=== PATIENT | female | born 1950 | race Caucasian/White ===

== ENCOUNTER 2023-06-27 05:15 | Inpatient (IN) | payer MEDICARE, OTHER ==
[~2023-06-27] VITALS: Ht 160 cm; Wt 43.2 kg
[2023-06-27] MEDS ORDERED: LOSA25TA41 PO (05:31)
[2023-06-27] MEDS ORDERED: AMI200T PO (05:31)
[2023-06-27] MEDS ORDERED: CLOP75TA34 PO (05:31)
[2023-06-27 06:10] LABS: BASOPHILS # (AUTO) 0.1 X10'3 (0-0.2); BASOPHILS % (AUTO) 0.8 % (0-1); EOSINOPHILS # (AUTO) 0.1 X10'3 (0-0.9); EOSINOPHILS % (AUTO) 1.8 % (0-6); HEMATOCRIT 40.5 % (35.0-45.0); HEMOGLOBIN 13.7 g/dl (12.0-16.0); LYMPHOCYTES # (AUTO) 1.4 X10'3 (1.1-4.8); LYMPHOCYTES % (AUTO) 21.7 % (21-51); MEAN CORPUSCULAR HEMOGLOBIN 31.5 PG (27.0-31.0); MEAN CORPUSCULAR HGB CONC 33.9 g/dL (33.0-36.5); MEAN CORPUSCULAR VOLUME 92.8 FL (78-98); MONOCYTES # (AUTO) 0.7 X10'3 (0-0.9); MONOCYTES % (AUTO) 9.8 % (2-12); NEUTROPHILS # (AUTO) 4.4 X10'3 (1.8-7.7); NEUTROPHILS % (AUTO) 65.9 % (42-75); PLATELET COUNT 208 X10'3 (140-440); RED BLOOD COUNT 4.37 X10'6 (4.20-5.60); RED CELL DISTRIBUTION WIDTH 13.3 % (11.5-14.5); WHITE BLOOD COUNT 6.6 X10'3 (4.5-11.0)
[2023-06-27 06:20] LABS: ALBUMIN 3.5 G/DL (3.4-5.0); ANION GAP 11 (8-16); BLOOD UREA NITROGEN 13 MG/DL (7-18); BUN/CREATININE RATIO 13.4 (10.0-20.0); CALCIUM 9.1 MG/DL (8.5-10.1); CHLORIDE 101 MMOL/L (99-107); CREATININE 0.97 MG/DL (0.40-0.90); GLUCOSE 95 MG/DL (70-104); POTASSIUM 4.1 MMOL/L (3.5-5.1); SODIUM 136 MMOL/L (135-145); TOTAL CARBON DIOXIDE 24.2 MMOL/L (24-32); eCRCL 45 ML/MIN; eGFR 56 ML/MIN
[2023-06-27] MEDS ORDERED: diphenhydrAMINE 50 mg/ml inj IV PRN (07:55)
[2023-06-27] MEDS ORDERED: ondansetron/PF 4mg/2ml inj IV PRN (07:55)
[2023-06-27] MEDS ORDERED: magnesium hydroxide 30ml (MOM) UD suspension PO PRN (07:55)
[2023-06-27] MEDS ORDERED: morphine 2 MG/ML inj. syringe IV PRN ×2 (07:55)
[2023-06-27] MEDS ORDERED: acetaminophen 650mg rectal suppository RC PRN (07:55)
[2023-06-27] MEDS ORDERED: mag hydrox/Alum hydrox/simeth 30ml oral suspension PO PRN (07:55)
[2023-06-27] MEDS ORDERED: acetaminophen 325mg tablet PO PRN ×2 (07:55)
[2023-06-27] MEDS ORDERED: ondansetron 4mg rapidly disintigrating tab PO PRN (07:55)
[2023-06-27] MEDS ORDERED: HYDROcodone/acetaminophen 10/325mg tab PO PRN (07:55)
[2023-06-27] MEDS ORDERED: HYDROcodone/acetaminophen 5mg/325mg tablet PO PRN (07:55)
[2023-06-27] MEDS ORDERED: bisacodyl 10mg suppository rectal RC PRN (07:55)
[2023-06-27 08:00] LABS: APTT 35 SECONDS (22-32); INR 1.1 INR; PROTHROMBIN TIME 11.5 SECONDS (9.0-12.0)
[2023-06-27] MEDS: docusate sod 100mg capsule PO SCH (08:14)
[2023-06-27] MEDS: normal saline 1000ml 1,000 ML IV SCH (08:17)
[2023-06-27] MEDS ORDERED: heparin 10,000 units/1 ML INJ IV PRN (08:30)
[2023-06-27] MEDS: magnesium 2GM in 50ml NS 50 ML IV ONE (08:57)
[2023-06-27 09:06] LABS: MAGNESIUM 2.1 MG/DL (1.5-2.4); PRO BRAIN NATRIURETIC PEPTIDE 2010 PG/ML (0-450)
[2023-06-27 09:12] LABS: HEMOGLOBIN A1C 5.9 % (4.5-6.2)
[2023-06-27 09:24] LABS: PHOSPHORUS 4.1 MG/DL (2.3-4.5)
[2023-06-27 09:37] VITALS: BP 105/70; PULSE 59; RESP 16; O2SAT 97
[2023-06-27] MEDS ORDERED: ASPI-1397 PO (09:41)
[2023-06-27] MEDS: ringers solution, lacted 1,000 ML IV ONE (10:58)
[2023-06-27] MEDS: MESSAGE TO NURSING IV ONE ×2 (11:15→21:57)
[2023-06-27 11:32] LABS: BASOPHILS # (AUTO) 0.1 X10'3 (0-0.2); BASOPHILS % (AUTO) 0.8 % (0-1); EOSINOPHILS % (AUTO) 0.7 % (0-6); HEMATOCRIT 41.8 % (35.0-45.0); HEMOGLOBIN 13.9 g/dl (12.0-16.0); LYMPHOCYTES # (AUTO) 1.2 X10'3 (1.1-4.8); LYMPHOCYTES % (AUTO) 18.1 % (21-51); MEAN CORPUSCULAR HGB CONC 33.3 g/dL (33.0-36.5); MEAN CORPUSCULAR VOLUME 93.1 FL (78-98); MEAN PLATELET VOLUME 8.6 FL (7.4-10.4); MONOCYTES # (AUTO) 0.5 X10'3 (0-0.9); MONOCYTES % (AUTO) 7.1 % (2-12); NEUTROPHILS # (AUTO) 4.9 X10'3 (1.8-7.7); NEUTROPHILS % (AUTO) 73.3 % (42-75); PLATELET COUNT 207 X10'3 (140-440); RED BLOOD COUNT 4.49 X10'6 (4.20-5.60); RED CELL DISTRIBUTION WIDTH 13.5 % (11.5-14.5); WHITE BLOOD COUNT 6.6 X10'3 (4.5-11.0)
[2023-06-27 11:36] VITALS: BP 110/62; PULSE 92; RESP 19; TEMP 98.1; O2SAT 96
[2023-06-27 11:54] LABS: CHOL/HDL RATIO 2.3 (0.00-4.99); CHOLESTEROL 167 MG/DL (0-200); HDL CHOLESTEROL 72 MG/DL (35-60); LDL CHOLESTEROL 81 MG/DL (50-100); LIPASE 78 U/L (16-77); THYROID STIMULATING HORMONE 3.71 ulU/ml (0.34-4.50); TRIGLYCERIDES 64 MG/DL (20-135)
[2023-06-27 14:00] VITALS: BP 105/47; PULSE 63; RESP 16; TEMP 98; O2SAT 93
[2023-06-27] MEDS ORDERED: heparin 25,000 UNIT/250ml bag 250 ML IV PRN (14:00)
[2023-06-27] MEDS: clopidogrel 75mg tablet PO SCH (14:14)
[2023-06-27] MEDS: heparin 25,000 UNIT/250ml bag 250 ML IV PRN (14:23)
[2023-06-27] MEDS ORDERED: aminophylline 250mg/10ml inj. IV PRN (17:35)
[2023-06-27] MEDS ORDERED: nitroGLYCERIN 0.4mg SUBLingual tab SL PRN (17:35)
[2023-06-27] MEDS ORDERED: metoprolol tartrate 1mg/ml inj IV PRN (17:35)
[2023-06-27 18:00] VITALS: BP 130/63; PULSE 71; RESP 13; TEMP 97.7; O2SAT 95
[2023-06-27 20:00] VITALS: RESP 20
[2023-06-27 22:00] VITALS: BP 131/47; PULSE 61; RESP 16; TEMP 97.4; O2SAT 96
[2023-06-28] VITALS (15 sets, daily range): BP systolic 97–143; BP diastolic 40–84; PULSE 69–113; RESP 14–20; TEMP 97.9–98.6; O2SAT 91–100
[2023-06-28] MEDS: temazepam 15mg capsule PO PRN (01:38)
[2023-06-28] MEDS ORDERED: haloperidol 5mg tablet PO PRN (02:15)
[2023-06-28] MEDS ORDERED: LORazepam 2 mg/ml vial IV PRN (02:15)
[2023-06-28] MEDS ORDERED: haloperidol lactate 5mg/ml inj IM PRN (02:15)
[2023-06-28] MEDS: LORazepam 1 MG tablet PO PRN (02:52)
[2023-06-28 03:12] LABS: BASOPHILS # (AUTO) 0.1 X10'3 (0-0.2); EOSINOPHILS # (AUTO) 0.1 X10'3 (0-0.9); EOSINOPHILS % (AUTO) 1.7 % (0-6); HEMOGLOBIN 12.7 g/dl (12.0-16.0); LYMPHOCYTES # (AUTO) 1.2 X10'3 (1.1-4.8); LYMPHOCYTES % (AUTO) 18.6 % (21-51); MEAN CORPUSCULAR HEMOGLOBIN 31.2 PG (27.0-31.0); MEAN CORPUSCULAR HGB CONC 33.4 g/dL (33.0-36.5); MEAN CORPUSCULAR VOLUME 93.6 FL (78-98); MEAN PLATELET VOLUME 8.3 FL (7.4-10.4); MONOCYTES # (AUTO) 0.4 X10'3 (0-0.9); MONOCYTES % (AUTO) 6.4 % (2-12); NEUTROPHILS # (AUTO) 4.7 X10'3 (1.8-7.7); NEUTROPHILS % (AUTO) 72.3 % (42-75); PLATELET COUNT 167 X10'3 (140-440); RED BLOOD COUNT 4.06 X10'6 (4.20-5.60); RED CELL DISTRIBUTION WIDTH 13.3 % (11.5-14.5); WHITE BLOOD COUNT 6.5 X10'3 (4.5-11.0)
[2023-06-28 03:25] LABS: ALANINE AMINOTRANSFERASE 16 U/L (12-78); ALBUMIN 3.1 G/DL (3.4-5.0); ALBUMIN/GLOBULIN RATIO 0.9 (1.1-1.5); ALKALINE PHOSPHATASE 62 IU/L (46-116); ANION GAP 10 (8-16); ASPARTATE AMINO TRANSFERASE 25 U/L (10-37); BILIRUBIN,TOTAL 0.8 MG/DL (0.1-1.0); BLOOD UREA NITROGEN 10 MG/DL (7-18); BUN/CREATININE RATIO 10.8 (10.0-20.0); CALCIUM 8.2 MG/DL (8.5-10.1); CHLORIDE 106 MMOL/L (99-107); CHOL/HDL RATIO 2.1 (0.00-4.99); CHOLESTEROL 141 MG/DL (0-200); CREATININE 0.93 MG/DL (0.40-0.90); GLUCOSE 87 MG/DL (70-104); HDL CHOLESTEROL 67 MG/DL (35-60); LDL CHOLESTEROL 65 MG/DL (50-100); POTASSIUM 3.6 MMOL/L (3.5-5.1); SODIUM 140 MMOL/L (135-145); TOTAL PROTEIN 6.7 G/DL (6.4-8.2); TRIGLYCERIDES 43 MG/DL (20-135); eCRCL 36 ML/MIN; eGFR 59 ML/MIN
[2023-06-28] MEDS: MESSAGE TO NURSING IV ONE ×2 (03:55→13:05)
[2023-06-28] MEDS ORDERED: atorvastatin 20mg tablet PO SCH (08:00)
[2023-06-28] MEDS: multivitamins, therapeutics tablet PO SCH (08:00)
[2023-06-28] MEDS: folic acid 1mg tablet PO SCH (08:00)
[2023-06-28] MEDS: thiamine 100mg tablet PO SCH (08:00)
[2023-06-28] MEDS: aspirin 81mg, enteric-coated 1 TAB TABLET.DR PO SCH (08:17)
[2023-06-28] MEDS: pantoprazole 40mg Tablet.DR PO SCH (08:53)
[2023-06-28] MEDS: atorvastatin 20mg tablet PO SCH (08:53)
[2023-06-28] MEDS: regadenoson 0.4mg/5ml syringe IV PRN (09:51)
[2023-06-28] MEDS: enoxaparin 40mg/0.4ml syringe SUBCUT STA (14:07)
[2023-06-28] MEDS ORDERED: iohexol 350MG/ML 100ml bottle IV ONE (14:26)
[2023-06-28] MEDS: diphenhydrAMINE 25mg capsule PO PRN (19:12)
[2023-06-28] MEDS: levoFLOXACIN-Levaquin 500mg/D5 100 ML IV SCH (21:45)
[2023-06-29] MEDS: metroNIDAZOLE-Flagyl 500mg/NS 100 ML IV SCH (00:33)
[2023-06-29 02:20] VITALS: BP 131/61; PULSE 79; RESP 18; TEMP 98.3; O2SAT 96
[2023-06-29 05:59] LABS: BILIRUBIN,URINE NEGATIVE (Neg); CLARITY,URINE CLEAR (Clear); COLOR,URINE YELLOW (Yellow); GLUCOSE, URINE NEGATIVE (Neg); KETONES,URINE TRACE mg/dl (Neg); LEUKOCYTE ESTERASE ,URINE NEGATIVE (Neg); NITRITES, URINE NEGATIVE (Neg); OCCULT BLOOD,URINE TRACE-INTACT (Neg); PH,URINE 6.5 (4.8-8.0); PROTEIN,URINE NEGATIVE (Neg); UROBILINOGEN,URINE 0.2 E.U/dL (0.2-1.0)
[2023-06-29 06:00] VITALS: BP 134/62; PULSE 61; RESP 14; TEMP 97.7; O2SAT 97
[2023-06-29 06:04] LABS: UA COLLECTION TYPE CLN CATCH MIDSTREAM
[2023-06-29 06:11] LABS: BACTERIA,URINE NONE SEEN /HPF (Neg); MUCUS STRANDS NONE SEEN /LPF (Neg); RBC,URINE 0-2 /HPF (0-2); SQUAMOUS EPITHELIAL CELL,UR NONE SEEN /LPF (FEW); TRANSITIONAL EPI CELLS,URINE FEW /HPF; WBC,URINE 0-4 /HPF (0-4)
[2023-06-29 08:00] VITALS: RESP 18; O2SAT 95
[2023-06-29 08:05] LABS: BASOPHILS # (AUTO) 0.1 X10'3 (0-0.2); BASOPHILS % (AUTO) 1.4 % (0-1); EOSINOPHILS # (AUTO) 0.1 X10'3 (0-0.9); EOSINOPHILS % (AUTO) 1.7 % (0-6); HEMATOCRIT 39.8 % (35.0-45.0); HEMOGLOBIN 13.1 g/dl (12.0-16.0); LYMPHOCYTES % (AUTO) 15.4 % (21-51); MEAN CORPUSCULAR HEMOGLOBIN 31.4 PG (27.0-31.0); MEAN CORPUSCULAR VOLUME 95.4 FL (78-98); MEAN PLATELET VOLUME 8.7 FL (7.4-10.4); MONOCYTES # (AUTO) 0.5 X10'3 (0-0.9); MONOCYTES % (AUTO) 8.2 % (2-12); NEUTROPHILS # (AUTO) 4.8 X10'3 (1.8-7.7); NEUTROPHILS % (AUTO) 73.3 % (42-75); PLATELET COUNT 164 X10'3 (140-440); RED BLOOD COUNT 4.18 X10'6 (4.20-5.60); RED CELL DISTRIBUTION WIDTH 13.4 % (11.5-14.5); WHITE BLOOD COUNT 6.5 X10'3 (4.5-11.0)
[2023-06-29 08:33] LABS: ALANINE AMINOTRANSFERASE 11 U/L (12-78); ALBUMIN 2.8 G/DL (3.4-5.0); ALBUMIN/GLOBULIN RATIO 0.8 (1.1-1.5); ALKALINE PHOSPHATASE 55 IU/L (46-116); ANION GAP 9 (8-16); ASPARTATE AMINO TRANSFERASE 24 U/L (10-37); BILIRUBIN,TOTAL 0.7 MG/DL (0.1-1.0); BLOOD UREA NITROGEN 10 MG/DL (7-18); BUN/CREATININE RATIO 11.9 (10.0-20.0); CALCIUM 8.3 MG/DL (8.5-10.1); CHLORIDE 106 MMOL/L (99-107); CREATININE 0.84 MG/DL (0.40-0.90); GLUCOSE 66 MG/DL (70-104); SODIUM 137 MMOL/L (135-145); TOTAL CARBON DIOXIDE 22.3 MMOL/L (24-32); TOTAL PROTEIN 6.4 G/DL (6.4-8.2); eCRCL 39 ML/MIN; eGFR 66 ML/MIN
[2023-06-29] MEDS: metoprolol succinate 25mg (24-HOUR) SR. Tablet PO SCH (09:27)
[2023-06-29] MEDS ORDERED: ATOR20TA66 PO (10:07)
[2023-06-29] MEDS ORDERED: LEVO-65 PO (10:07)
[2023-06-29] MEDS ORDERED: METO-395 PO (10:07)
[2023-06-29] MEDS ORDERED: METR-159 PO (10:07)
[2023-06-29 11:00] VITALS: BP 143/62; PULSE 68; RESP 15; TEMP 97.6; O2SAT 95
[2023-06-29] MEDS ORDERED: FURO-150 PO (13:48)
== END 2023-06-29 13:10 | disposition home or self-care (01) | DRG 177 ==
LOC: ER 05:16 → PCU 3S 08:00
PROVIDERS: ADMIT Family Medicine; ATTEND Family Medicine
PROC: 4A02XM4 Measurement of Cardiac Total Activity, External Approach (ICD-10-PCS; principal; 2023-06-28)
PROC: 3E073KZ Introduction of Other Diagnostic Substance into Coronary Artery, Percutaneous Approach (ICD-10-PCS; 2023-06-28)
PROC: B32T1ZZ Computerized Tomography (CT Scan) of Left Pulmonary Artery using Low Osmolar Contrast (ICD-10-PCS; 2023-06-28)
PROC: B3201ZZ Computerized Tomography (CT Scan) of Thoracic Aorta using Low Osmolar Contrast (ICD-10-PCS; 2023-06-28)
PROC: B32S1ZZ Computerized Tomography (CT Scan) of Right Pulmonary Artery using Low Osmolar Contrast (ICD-10-PCS; 2023-06-28)
DX: J69.0 Pneumonitis due to inhalation of food and vomit (principal); G93.41 Metabolic encephalopathy; I21.4 Non-ST elevation (NSTEMI) myocardial infarction; I50.23 Acute on chronic systolic (congestive) heart failure; I13.0 Hypertensive heart and chronic kidney disease with heart failure and stage 1 through stage 4 chronic kidney disease, or unspecified chronic kidney disease; E46 Unspecified protein-calorie malnutrition; N17.9 Acute kidney failure, unspecified; Z68.1 Body mass index [BMI] 19.9 or less, adult; F10.239 Alcohol dependence with withdrawal, unspecified; E86.0 Dehydration; I25.10 Atherosclerotic heart disease of native coronary artery without angina pectoris; F17.201 Nicotine dependence, unspecified, in remission; E86.1 Hypovolemia; R91.8 Other nonspecific abnormal finding of lung field; I71.21 Aneurysm of the ascending aorta, without rupture; N18.9 Chronic kidney disease, unspecified; J44.9 Chronic obstructive pulmonary disease, unspecified; I48.91 Unspecified atrial fibrillation; Z79.01 Long term (current) use of anticoagulants; Z79.899 Other long term (current) drug therapy; Z98.61 Coronary angioplasty status; I25.2 Old myocardial infarction; Z79.02 Long term (current) use of antithrombotics/antiplatelets; Z91.199 Patient's noncompliance with other medical treatment and regimen due to unspecified reason; I48.0 Paroxysmal atrial fibrillation; R13.10 Dysphagia, unspecified; R00.1 Bradycardia, unspecified
CPT/HCPCS: 36415; 71045; 71275; 78452; 80048; 80053; 80061; 81001; 83036; 83690; 83735; 83880; 84100; 84443; 84484; 85025; 85610; 85730; 87081; 92508; 92616; 93005; 93017; 93306; 99291; A9500; G0378; J1644; J1650; J1956; J2785; J3475; J3490; J7030; J7120; Q0163; Q9967